=== PATIENT | female | born 1965 | race Caucasian/White ===

== ENCOUNTER 2016-08-30 19:26 | Emergency (ER) | payer OTHER ==
--- NOTE | 2016-08-30 19:46 | ED ORDER SUMMARY ---
..... Patient: DAVID CASTANEDA OrderSheet [facility] VisitID: [id number] [address] [place] [address] 50y, F Registration Date/Time: 08/30/2016 ORDER SHEET Weight: 54.4 kg (stated) Allergies: Sulfa Antibiotics, Penicillin, NICKEL GENERAL ORDERS: MEDICATION ORDERS: Doxycycline Hyclate PO 100 mg (NOW) (19:43 08/30/2016 Benitez Ornelas) ([facility] 19:49 HSoule) (20:03 ASchmuck) Tdap IM 0.5 mL (NOW, per protocol) (19:58 08/30/2016 ASchmuck verbal order read back to Benitez Ornelas) (19:59 ASchmuck) IV FLUIDS: ORDER SHEET NOTES: [Electronically signed by Roselyn Guadalupe P.A.-C (19:59 08/30/2016)] [Electronically signed by Karen Vazquez (20:06 08/30/2016)] [Electronically locked/signed by Karen Vazquez (20:06 08/30/2016)]
--- NOTE | 2016-08-30 19:46 | ED CLINICAL REPORT ---
Clinical Report - Physicians/Mid Levels [facility] [address] [place] [address] 08/30/2016 19:29 Patient: DAVID CASTANEDA Time Seen: 19:57 Aug 30 2016. Arrived- By private vehicle. Historian- patient. HISTORY OF PRESENT ILLNESS Chief Complaint: SKIN RASH and LESION. This started 5 days and is still present. It has been located on the right middle finger. (Patient reports swelling to her right arm over the last 7 days, was seen at the urgent care clinic on the , started on clindamycin, has had about 6-7 doses of such, swelling has improved, however the erythema has not. NO injury. NO fevers. No drainage. SOme swelling extending into forearm. NO h/o mrsa. Unclear on last tetanus.). REVIEW OF SYSTEMS No fever, chills or chest pain. All systems otherwise negative, except as recorded above. PAST HISTORY Tetanus immunization status is unknown. Problems: MADDY. Hyperventilation. Fibromyalgia. Herpes Zoster. Additional Surgeries: Ablation. Breast Augmentation. Dental Surgery. Nose. Shoulder Surgery. Tonsillectomy. Medications: Advil Oral. Acyclovir Oral. Benadryl Oral. Krill Oil Oral. Magnesium Oral. Ferrous Sulfate Oral. Ascorbic Acid Oral. Melatonin Oral. Cholecalciferol Oral. [place] 3 Oral. Peppermint Oil. Biotin Oral. Vitamin E Oral. Zinc Oral. Clindamycin HCl Oral. Allergies: NICKEL. Penicillin. Sulfa Antibiotics. SOCIAL HISTORY Never smoker. No alcohol use or drug use. ADDITIONAL NOTES The nursing notes have been reviewed. PHYSICAL EXAM Vital Signs: 08/30/2016 19:42 BP: 113/41. HR: 73. RR: 16. O2 saturation: 100%. Temp: 98.3 F. Appearance: Alert. Neck: Neck supple. CVS: Normal heart rate and rhythm. Respiratory: No respiratory distress. Breath sounds normal. Skin: Skin warm. Cellulitis (proximal dorsal surface of r. 3rd digit, with mild lymphagetic dorsal streaking into forearm). Extremities: (full extension/ flexion of r. 3rd digit). Neuro: Oriented X 3. PROGRESS AND PROCEDURES Course of Care: Patient with an isolated area of cellulitis, with full extension and flexion, no signs of tenosynovitis. We'll start her on doxycycline, in addition to clindamycin. Patient otherwise stable. No signs of abscess. No history of trauma or injury. Tetanus physician up-to-date. Patient is stable. Patient/family counseled. Disposition: Discharged. CLINICAL IMPRESSION Cellulitis of the right shoulder and right middle finger. INSTRUCTIONS Do not work for three days. (elevate take clindamycin and now Doxy Take benadryl at night in case there is any component of allergy). Warnings: Further evaluation is necessary. TETANUS: You were given a tetanus shot during your visit. Make a note for future reference. Prescription Medications: Doxycycline 100 mg: Take 1 capsule orally every 12 hours for 10 days. No refill. Follow-up: Follow up with your doctor in two days if not well and for wound check. (Electronically signed by Roselyn Guadalupe P.A.-C 08/30/2016 19:59)
--- NOTE | 2016-08-30 19:46 | ED ORDER SUMMARY ---
..... Patient: DAVID CASTANEDA OrderSheet [facility] VisitID: [id number] [address] [place] [address] 50y, F Registration Date/Time: 08/30/2016 ORDER SHEET Weight: 54.4 kg (stated) Allergies: Sulfa Antibiotics, Penicillin, NICKEL GENERAL ORDERS: MEDICATION ORDERS: Doxycycline Hyclate PO 100 mg (NOW) (19:43 08/30/2016 Benitez Ornelas) ([facility] 19:49 HSoule) (20:03 ASchmuck) Tdap IM 0.5 mL (NOW, per protocol) (19:58 08/30/2016 ASchmuck verbal order read back to Benitez Ornelas) (19:59 ASchmuck) IV FLUIDS: ORDER SHEET NOTES: [Electronically signed by Roselyn Guadalupe P.A.-C (19:59 08/30/2016)] [Electronically signed by Karen Vazquez (20:06 08/30/2016)] [Electronically locked/signed by Karen Vazquez (20:06 08/30/2016)]
--- NOTE | 2016-08-30 19:46 | ED CLINICAL REPORT ---
Clinical Report - Physicians/Mid Levels [facility] [address] [address] 08/30/2016 19:29 Patient: DAVID CASTANEDA Time Seen: 19:57 Aug 30 2016. Arrived- By private vehicle. Historian- patient. HISTORY OF PRESENT ILLNESS Chief Complaint: SKIN RASH and LESION. This started 5 days and is still present. It has been located on the right middle finger. (Patient reports swelling to her right arm over the last 7 days, was seen at the urgent care clinic on the , started on clindamycin, has had about 6-7 doses of such, swelling has improved, however the erythema has not. NO injury. NO fevers. No drainage. SOme swelling extending into forearm. NO h/o mrsa. Unclear on last tetanus.). REVIEW OF SYSTEMS No fever, chills or chest pain. All systems otherwise negative, except as recorded above. PAST HISTORY Tetanus immunization status is unknown. Problems: MADDY. Hyperventilation. Fibromyalgia. Herpes Zoster. Additional Surgeries: Ablation. Breast Augmentation. Dental Surgery. Nose. Shoulder Surgery. Tonsillectomy. Medications: Advil Oral. Acyclovir Oral. Benadryl Oral. Krill Oil Oral. Magnesium Oral. Ferrous Sulfate Oral. Ascorbic Acid Oral. Melatonin Oral. Cholecalciferol Oral. [place] 3 Oral. Peppermint Oil. Biotin Oral. Vitamin E Oral. Zinc Oral. Clindamycin HCl Oral. Allergies: NICKEL. Penicillin. Sulfa Antibiotics. SOCIAL HISTORY Never smoker. No alcohol use or drug use. ADDITIONAL NOTES The nursing notes have been reviewed. PHYSICAL EXAM Vital Signs: 08/30/2016 19:42 BP: 113/41. HR: 73. RR: 16. O2 saturation: 100%. Temp: 98.3 F. Appearance: Alert. Neck: Neck supple. CVS: Normal heart rate and rhythm. Respiratory: No respiratory distress. Breath sounds normal. Skin: Skin warm. Cellulitis (proximal dorsal surface of r. 3rd digit, with mild lymphagetic dorsal streaking into forearm). Extremities: (full extension/ flexion of r. 3rd digit). Neuro: Oriented X 3. PROGRESS AND PROCEDURES Course of Care: Patient with an isolated area of cellulitis, with full extension and flexion, no signs of tenosynovitis. We'll start her on doxycycline, in addition to clindamycin. Patient otherwise stable. No signs of abscess. No history of trauma or injury. Tetanus physician up-to-date. Patient is stable. Patient/family counseled. Disposition: Discharged. CLINICAL IMPRESSION Cellulitis of the right shoulder and right middle finger. INSTRUCTIONS Do not work for three days. (elevate take clindamycin and now Doxy Take benadryl at night in case there is any component of allergy). Warnings: Further evaluation is necessary. TETANUS: You were given a tetanus shot during your visit. Make a note for future reference. Prescription Medications: Doxycycline 100 mg: Take 1 capsule orally every 12 hours for 10 days. No refill. Follow-up: Follow up with your doctor in two days if not well and for wound check. (Electronically signed by Roselyn Guadalupe P.A.-C 08/30/2016 19:59)
--- NOTE | 2016-08-30 19:46 | ED NURSING NOTES ---
Clinical Report - Nurses [place] [address] [place] [address] 08/30/2016 19:29 Patient: DAVID CASTANEDA [facility] [id number] TRIAGE Triage time 19:34 Aug 30 2016. Acuity: LEVEL 4. Chief Complaint: RIGHT UPPER EXTREMITY PAIN, SWELLING, REDNESS and NUMBNESS. 19:42 08/30/16. Alert. No acute distress. SEPSIS SCREEN: Sepsis Screen. Negative (no infection suspected/documented). RONNY COMA SCORE: [place] Coma Scale: 15- eyes open spontaneously (4); best verbal response- oriented x 4 (5); best motor response- obeys commands (6). --19:42 Karen Vazquez 19:42 08/30/16. BP: 113/41. HR: 73. RR: 16. O2 saturation: 100%. Temp: 98.3 F. Pain level now 7/10. --19:42 Karen Vazquez. Weight: 54.4 kg stated. Height/Length: 68 inches Per Patient. BMI: 18.2. --19:41 Karen Vazquez. Medications Clindamycin HCl Oral. --19:36 Karen Vazquez Zinc Oral. --19:36 Karen Vazquez Vitamin E Oral. --19:36 Karen Vazquez Biotin Oral. --19:36 Karen Vazquez Peppermint Oil. --19:37 Karen Vazquez [place] 3 Oral. --19:37 Karen Vazquez Cholecalciferol Oral. --19:37 Karen Vazquez Melatonin Oral. --19:37 Karen Vazquez Ascorbic Acid Oral. --19:37 Karen Vazquez Ferrous Sulfate Oral. --19:37 Karen Vazquez Magnesium Oral. --19:37 Karen Vazquez Krill Oil Oral. --19:37 Karen Vazquez Benadryl Oral. --19:37 Karen Vazquez Acyclovir Oral. --19:38 Karen Vazquez Advil Oral. --19:38 Karen Vazquez. Medication/allergy information source: the patient. --19:42 Karen Vazquez. Allergies Sulfa Antibiotics. --19:38 Karen Vazquez Penicillin. --19:38 Karen Vazquez NICKEL. --19:38 Karen Vazquez. History Arrived by private vehicle. Historian: patient. Accompanied by family. Primary physician (Winifred). No injury occurred. This occurred (Wednesday). It is described as radiating to the right upper extremity, forearm, wrist and hand. ( Pt reports that she was seen at the clinic Wednesday for a swollen finger on her R hand. Was started on Clindamycin yesterday. Reports today for increased redness.). She has had swelling, redness, numbness and weakness. No fever or itching. Treatment RETURNED TELEPHONE EQUIPMENT APPRAISER: (Ibuprofen, epsom salt). PAST MEDICAL HX: No history of diabetes mellitus, heart disease or hypertension. Tetanus status: unknown. Immunizations: up-to-date. SOCIAL HX: Never smoker. No alcohol use or drug use. FALL RISK ASSESSMENT: Fall risk assessment completed. No fall risk identified. NUTRITIONAL RISK ASSESSMENT: The nutritional risk assessment revealed no deficiencies. FUNCTIONAL ASSESSMENT: Functional assessment: no impairments noted. LEARNING NEEDS ASSESSMENT: The learning needs assessment revealed no barriers. SKIN INTEGRITY ASSESSMENT: Skin integrity risk assessment completed. No skin integrity risk identified. --19:42 Karen Vazquez. PROBLEMS: MADDY. Hyperventilation. Fibromyalgia. Herpes Zoster. --19:39 Karen Vazquez. ADDITIONAL SURGERIES: Ablation. Breast Augmentation. Dental Surgery. Nose. Shoulder Surgery. Tonsillectomy. --19:39 Karen Vazquez. Assessment The patient states feels the same. --19:42 Karen Vazquez. Interventions ID band on patient. --19:42 Karen Vazquez. PHYSICAL ASSESSMENT 19:43 08/30/16. Ambulatory to room. GENERAL / NEURO / PSYCH: Oriented X 4. Alert. Appears in no acute distress. EXTREMITIES: Erythema on the extremities. Limited ROM present. Neuro-vascular status intact to the extremity. Right middle finger: tenderness and swelling. SKIN: Skin intact. Skin is warm and dry. --19:43 Karen Vazquez. NURSING PROGRESS NOTES 19:43 08/30/16. The plan of care for this patient has been created. Cold pack applied. Extremity elevated. Reassurance given. Two patient identifiers checked. Call light placed in reach. Side rails up x 1. Bed placed in lowest position. Brakes of bed on. Patient ready for evaluation- chart flagged and ED physician and PA notified. --19:43 Karen Vazquez 19:49 08/30/2016 TDAP IM 0.5 mL given. (Lot#: [id number], expiration date: 04/25/2018, Edge Plugger: [email or web address]). Given in the left deltoid. Allergies verified and confirmed 5 rights. Vaccine information statement provided to the patient. --19:59 Karen Vazquez 19:58 08/30/2016 DOXYCYCLINE HYCLATE PO Tablets 100 mg given. Allergies verified and confirmed 5 rights. --20:03 Karen Vazquez. DISPOSITION / DISCHARGE 20:05 08/30/16. Departure time: 20:05 Aug 30 2016. Condition at departure: unchanged. The goals identified in the patient's plan of care were met. No learning barriers present. Discharge instructions provided and reviewed with the patient. Reviewed warnings (Patient verbalized awareness of warning s/sx listed in dc paperwork.). Reviewed medication(s) (Doxycycline. Benadryl). Treatments reviewed. Reviewed referral to a primary care physician for followup. Patient verbalized understanding. Written instructions provided in Lebanese. The patient was discharged by the physician therapeutic recreation assistant. She was discharged home and accompanied by family. She left the Emergency Department ambulatory and via private vehicle. Family member driving. FALL RISK ASSESSMENT: Fall risk assessment completed. No fall risk identified. --20:05 Karen Vazquez 20:04 08/30/16. BP: deferred. HR: deferred. RR: deferred. O2 saturation: deferred. Temp: deferred. Pain level now deferred. --20:05 Karen Vazquez. Locked/Released at 08/30/2016 20:06 by Karen Vazquez,
--- NOTE | 2016-08-30 19:46 | ED NURSING NOTES ---
Clinical Report - Nurses [place] [address] [place] [address] 08/30/2016 19:29 [id number] Triage time 19:34 Aug 30 2016. Acuity: LEVEL 4. Chief Complaint: RIGHT UPPER EXTREMITY PAIN, SWELLING, REDNESS and NUMBNESS. 19:42 08/30/16. Alert. No acute distress. SEPSIS SCREEN: Sepsis Screen. Negative (no infection suspected/documented). RONNY COMA SCORE: [place] Coma Scale: 15- eyes open spontaneously (4); best verbal response- oriented x 4 (5); best motor response- obeys commands (6). --19:42 Karen Vazqeuz 19:42 08/30/16. BP: 113/41. HR: 73. RR: 16. O2 saturation: 100%. Temp: 98.3 F. Pain level now 7/10. --19:42 Karen Vazquez. Weight: 54.4 kg stated. Height/Length: 68 inches Per Patient. BMI: 18.2. --19:41 Karen Vazquez. Medications Clindamycin HCl Oral. --19:36 Karen Vazquez Zinc Oral. --19:36 Karen Vazquez Vitamin E Oral. --19:36 Karen Vazquez Biotin Oral. --19:36 Karen Vazquez Peppermint Oil. --19:37 Karen Vazquez [place] 3 Oral. --19:37 Karen Vazquez Cholecalciferol Oral. --19:37 Karen Vazquez Melatonin Oral. --19:37 Karen Vazquez Ascorbic Acid Oral. --19:37 Karen Vazquez Ferrous Sulfate Oral. --19:37 Karen Vazquez Magnesium Oral. --19:37 Karen Vazquez Krill Oil Oral. --19:37 Karen Vazquez Benadryl Oral. --19:37 Karen Vazquez Acyclovir Oral. --19:38 Karen Vazquez Advil Oral. --19:38 Karen Vazquez. Medication/allergy information source: the patient. --19:42 Karen Vazquez. Allergies Sulfa Antibiotics. --19:38 Karen Vazquez Penicillin. --19:38 Karen Vazquez NICKEL. --19:38 Karen Vazquez. History Arrived by private vehicle. Historian: patient. Accompanied by family. Primary physician (Winifred). No injury occurred. This occurred (Wednesday). It is described as radiating to the right upper extremity, forearm, wrist and hand. ( Pt reports that she was seen at the clinic Wednesday for a swollen finger on her R hand. Was started on Clindamycin yesterday. Reports today for increased redness.). She has had swelling, redness, numbness and weakness. No fever or itching. Treatment MARKET RISK SPECIALIST: (Ibuprofen, epsom salt). PAST MEDICAL HX: No history of diabetes mellitus, heart disease or hypertension. Tetanus status: unknown. Immunizations: up-to-date. SOCIAL HX: Never smoker. No alcohol use or drug use. FALL RISK ASSESSMENT: Fall risk assessment completed. No fall risk identified. NUTRITIONAL RISK ASSESSMENT: The nutritional risk assessment revealed no deficiencies. FUNCTIONAL ASSESSMENT: Functional assessment: no impairments noted. LEARNING NEEDS ASSESSMENT: The learning needs assessment revealed no barriers. SKIN INTEGRITY ASSESSMENT: Skin integrity risk assessment completed. No skin integrity risk identified. --19:42 Karen Vazquez. PROBLEMS: MADDY. Hyperventilation. Fibromyalgia. Herpes Zoster. --19:39 Karen Vazquez. ADDITIONAL SURGERIES: Ablation. Breast Augmentation. Dental Surgery. Nose. Shoulder Surgery. Tonsillectomy. --19:39 Karen Vazquez. Assessment The patient states feels the same. --19:42 Karen Vazquez. Interventions ID band on patient. --19:42 Karen Vazquez. PHYSICAL ASSESSMENT 19:43 08/30/16. Ambulatory to room. GENERAL / NEURO / PSYCH: Oriented X 4. Alert. Appears in no acute distress. EXTREMITIES: Erythema on the extremities. Limited ROM present. Neuro-vascular status intact to the extremity. Right middle finger: tenderness and swelling. SKIN: Skin intact. Skin is warm and dry. --19:43 Karen Vazquez. NURSING PROGRESS NOTES 19:43 08/30/16. The plan of care for this patient has been created. Cold pack applied. Extremity elevated. Reassurance given. Two patient identifiers checked. Call light placed in reach. Side rails up x 1. Bed placed in lowest position. Brakes of bed on. Patient ready for evaluation- chart flagged and ED physician and PA notified. --19:43 Karen Vazquez 19:49 08/30/2016 TDAP IM 0.5 mL given. (Lot#: [id number], expiration date: 04/25/2018, Automatic Winder Operator: [email or web address]). Given in the left deltoid. Allergies verified and confirmed 5 rights. Vaccine information statement provided to the patient. --19:59 Karen Vazquez 19:58 08/30/2016 DOXYCYCLINE HYCLATE PO Tablets 100 mg given. Allergies verified and confirmed 5 rights. --20:03 Karen Vazquez. DISPOSITION / DISCHARGE 20:05 08/30/16. Departure time: 20:05 Aug 30 2016. Condition at departure: unchanged. The goals identified in the patient's plan of care were met. No learning barriers present. Discharge instructions provided and reviewed with the patient. Reviewed warnings (Patient verbalized awareness of warning s/sx listed in dc paperwork.). Reviewed medication(s) (Doxycycline. Benadryl). Treatments reviewed. Reviewed referral to a primary care physician for followup. Patient verbalized understanding. Written instructions provided in Scottish. The patient was discharged by the physician assistant professor of music. She was discharged home and accompanied by family. She left the Emergency Department ambulatory and via private vehicle. Family member driving. FALL RISK ASSESSMENT: Fall risk assessment completed. No fall risk identified. --20:05 Karen Vazquez 20:04 08/30/16. BP: deferred. HR: deferred. RR: deferred. O2 saturation: deferred. Temp: deferred. Pain level now deferred. --20:05 Karen Vazquez. Locked/Released at 08/30/2016 20:06 by Karen Vazquez,
--- NOTE | 2016-08-30 20:06 | ED MED RECONCILIATION SUMMARY ---
Patient: DAVID CASTANEDA Medication Reconciliation Report [facility] VisitID: [id number] [address] [place] [address] 50y, F Registration Date/Time: 08/30/2016 Weight: 54.4 kg Height/Length: 68 in. BMI: 18.2 ALLERGIES: NICKEL, Penicillin, Sulfa Antibiotics The patient's Home Medications are listed below: THE FOLLOWING MEDICATIONS NEED TO BE RECONCILED: Acyclovir Oral Advil Oral Ascorbic Acid Oral Benadryl Oral Biotin Oral Cholecalciferol Oral Clindamycin HCl Oral Ferrous Sulfate Oral Krill Oil Oral Magnesium Oral Melatonin Oral [place] 3 Oral Peppermint Oil Vitamin E Oral Zinc Oral The source(s) of the original Home Medication information: patient The following Medications were given to the patient in the Emergency Department: TDAP [IM] IM 0.5 mL, administered: 08/30/2016 7:49:00 PM DOXYCYCLINE HYCLATE [PO] PO 100 mg, administered: 08/30/2016 7:58:00 PM The following Medications were prescribed to the patient: Doxycycline 100 mg: Take 1 capsule orally every 12 hours for 10 days. No refill. -- Roselyn Guadalupe, PSaulASaul-C
--- NOTE | 2016-08-30 20:06 | ED DISCHARGE INSTRUCTIONS ---
Patient: DAVID CASTANEDA General Instructions [facility] VisitID: [id number] [place] [address] 50y, F Registration Date/Time: 08/30/2016 Cellulitis of the right shoulder and right middle finger. INSTRUCTIONS Do not work for three days. (elevate take clindamycin and now Doxy Take benadryl at night in case there is any component of allergy). Warnings: Further evaluation is necessary. TETANUS: You were given a tetanus shot during your visit. Make a note for future reference. Prescription Medications: Doxycycline 100 mg: Take 1 capsule orally every 12 hours for 10 days. No refill. Follow-up: Follow up with your doctor in two days if not well and for wound check. ADDITIONAL INFORMATION Cellulitis You have an infection of the skin known as cellulitis. This usually starts with a scrape, cut, insect bite, blister or other opening in the skin which becomes infected. This is a serious condition. It must be watched closely to be sure the infection is not spreading. With antibiotic treatment, the size of the red area will gradually shrink in size until the skin returns to normal. This will take 7-10 days. The red area should never increase in size once the antibiotic medicine has been started. Occasionally, an infection will be resistant to one antibiotic and another one will have to be used. Home Care: 1) Limit the use of the affected part, since excess movement can cause the infection to spread. 2) If the infection is on your leg, walk as little as possible during the first few days of the treatment. Keep your leg elevated while sitting. This will reduce swelling. 3) Take all of the antibiotic medicine exactly as directed until it is gone. Be careful not to miss any doses, especially during the first seven days. Follow Up with your doctor or this facility as directed. Check the infected area daily for the warning signs listed below. Get Prompt Medical Attention if any of the following occur: -- Spreading area of redness -- Increasing swelling or pain -- Appearance of pus or drainage -- Fever over 100.4 F (38.0 C) oral, or over 101.4 F (38.6 C) rectal, after two days on antibiotics Diphtheria Toxoid Adsorbed, Tetanus Toxoid, Adsorbed Suspension for injection What is this medicine? DIPHTHERIA AND TETANUS TOXOIDS ADSORBED (dif THEER ee uh and TET n us TOK soids ad SAWRB) is a vaccine. It is used to prevent infections of diphtheria and tetanus (henrry). How should I use this medicine? This vaccine is for injection into a muscle. It is given by a health rn transitional care. A copy of Vaccine Information Statements will be given before each vaccination. Read this sheet carefully each time. The sheet may change frequently. Talk to your agricultural education teacher regarding the use of this medicine in children. While this drug may be prescribed for selected conditions, precautions do apply. What side effects may I notice from receiving this medicine? Side effects that you should report to your doctor or health rn transitional care as soon as possible: allergic reactions like skin rash, itching or hives, swelling of the face, lips, or tongue arthritis pain breathing problems changes in hearing extreme changes in behavior fast, irregular heartbeat fever over 100 degrees F pain, tingling, numbness in the hands or feet seizures unusually weak or tired Side effects that usually do not require medical attention (report to your doctor or health rn transitional care if they continue or are bothersome): aches or pains bruising, pain, swelling at site where injected headache loss of appetite low-grade fever of 100 degrees F or less nausea, vomiting sleepy swollen glands What may interact with this medicine? adalimumab anakinra infliximab live vaccines medicines that suppress your immune system medicines to treat cancer medicines that treat or prevent blood clots like daily aspirin, enoxaparin, heparin, ticlopidine, warfarin radiopharmaceuticals like iodine I-125 or I-131 What if I miss a dose? Keep appointments for follow-up (booster) doses as directed. It is important not to miss your dose. Call your doctor or health rn transitional care if you are unable to keep an appointment. Where should I keep my medicine? This drug is given in a hospital or clinic and will not be stored at home. What should I tell my health care provider before I take this medicine? They need to know if you have any of these conditions: bleeding disorder immune system problems infection with fever low levels of platelets in the blood an unusual or allergic reaction to diphtheria or tetanus toxoid, latex, thimerosal, other medicines, foods, dyes, or preservatives or trying to get breast-feeding What should I watch for while using this medicine? Contact your doctor or health rn transitional care and seek emergency medical care if any serious side effects occur. This vaccine, like all vaccines, may not fully protect everyone. You have been given the following additional information: Cellulitis Diphtheria Toxoid Adsorbed, Tetanus Toxoid, Adsorbed Suspension for injection Do not work for three days. (Electronically signed by Roselyn Guadalupe P.A.-C 08/30/2016 19:59)
--- NOTE | 2016-08-30 20:06 | ED MAR SUMMARY ---
..... Medication Administration Record [facility] [address] [place] [address] Patient: DAVID CASTANEDA Visit ID: [id number] 50y, F Weight: 54.4 kg Height/Length: 68 in BMI: 18.2 ALLERGIES: NICKEL, Penicillin, Sulfa Antibiotics Given 19:49 08/30/2016 Karen Vazquez, Medication Administered: TDAP [IM], Dose: 0.5 mL IM. Medication Ordered: Tdap IM 0.5 mL (NOW, per protocol). Given 19:58 08/30/2016 Karen Vazquez, Medication Administered: DOXYCYCLINE HYCLATE [PO], Dose: 100 mg Tablets PO. Medication Ordered: Doxycycline Hyclate PO 100 mg (NOW).
--- NOTE | 2016-08-30 20:06 | ED DISCHARGE INSTRUCTIONS ---
Patient: DAVID CASTANEDA General Instructions [facility] VisitID: [id number] [place] [address] 50y, F Registration Date/Time: 08/30/2016 Cellulitis of the right shoulder and right middle finger. INSTRUCTIONS Do not work for three days. (elevate take clindamycin and now Doxy Take benadryl at night in case there is any component of allergy). Warnings: Further evaluation is necessary. TETANUS: You were given a tetanus shot during your visit. Make a note for future reference. Prescription Medications: Doxycycline 100 mg: Take 1 capsule orally every 12 hours for 10 days. No refill. Follow-up: Follow up with your doctor in two days if not well and for wound check. ADDITIONAL INFORMATION Cellulitis You have an infection of the skin known as cellulitis. This usually starts with a scrape, cut, insect bite, blister or other opening in the skin which becomes infected. This is a serious condition. It must be watched closely to be sure the infection is not spreading. With antibiotic treatment, the size of the red area will gradually shrink in size until the skin returns to normal. This will take 7-10 days. The red area should never increase in size once the antibiotic medicine has been started. Occasionally, an infection will be resistant to one antibiotic and another one will have to be used. Home Care: 1) Limit the use of the affected part, since excess movement can cause the infection to spread. 2) If the infection is on your leg, walk as little as possible during the first few days of the treatment. Keep your leg elevated while sitting. This will reduce swelling. 3) Take all of the antibiotic medicine exactly as directed until it is gone. Be careful not to miss any doses, especially during the first seven days. Follow Up with your doctor or this facility as directed. Check the infected area daily for the warning signs listed below. Get Prompt Medical Attention if any of the following occur: -- Spreading area of redness -- Increasing swelling or pain -- Appearance of pus or drainage -- Fever over 100.4 F (38.0 C) oral, or over 101.4 F (38.6 C) rectal, after two days on antibiotics Diphtheria Toxoid Adsorbed, Tetanus Toxoid, Adsorbed Suspension for injection What is this medicine? DIPHTHERIA AND TETANUS TOXOIDS ADSORBED (dif THEER ee uh and TET n us TOK soids ad SAWRB) is a vaccine. It is used to prevent infections of diphtheria and tetanus (henrry). How should I use this medicine? This vaccine is for injection into a muscle. It is given by a health home care music therapist. A copy of Vaccine Information Statements will be given before each vaccination. Read this sheet carefully each time. The sheet may change frequently. Talk to your senior php web developer regarding the use of this medicine in children. While this drug may be prescribed for selected conditions, precautions do apply. What side effects may I notice from receiving this medicine? Side effects that you should report to your doctor or health home care music therapist as soon as possible: allergic reactions like skin rash, itching or hives, swelling of the face, lips, or tongue arthritis pain breathing problems changes in hearing extreme changes in behavior fast, irregular heartbeat fever over 100 degrees F pain, tingling, numbness in the hands or feet seizures unusually weak or tired Side effects that usually do not require medical attention (report to your doctor or health home care music therapist if they continue or are bothersome): aches or pains bruising, pain, swelling at site where injected headache loss of appetite low-grade fever of 100 degrees F or less nausea, vomiting sleepy swollen glands What may interact with this medicine? adalimumab anakinra infliximab live vaccines medicines that suppress your immune system medicines to treat cancer medicines that treat or prevent blood clots like daily aspirin, enoxaparin, heparin, ticlopidine, warfarin radiopharmaceuticals like iodine I-125 or I-131 What if I miss a dose? Keep appointments for follow-up (booster) doses as directed. It is important not to miss your dose. Call your doctor or health home care music therapist if you are unable to keep an appointment. Where should I keep my medicine? This drug is given in a hospital or clinic and will not be stored at home. What should I tell my health care provider before I take this medicine? They need to know if you have any of these conditions: bleeding disorder immune system problems infection with fever low levels of platelets in the blood an unusual or allergic reaction to diphtheria or tetanus toxoid, latex, thimerosal, other medicines, foods, dyes, or preservatives or trying to get breast-feeding What should I watch for while using this medicine? Contact your doctor or health home care music therapist and seek emergency medical care if any serious side effects occur. This vaccine, like all vaccines, may not fully protect everyone. You have been given the following additional information: Cellulitis Diphtheria Toxoid Adsorbed, Tetanus Toxoid, Adsorbed Suspension for injection Do not work for three days. (Electronically signed by Roselyn Guadalupe P.A.-C 08/30/2016 19:59)
--- NOTE | 2016-08-30 20:06 | ED MAR SUMMARY ---
..... Medication Administration Record [facility] [address] [place] [address] Patient: DAVID CASTANEDA Visit ID: [id number] 50y, F Weight: 54.4 kg Height/Length: 68 in BMI: 18.2 ALLERGIES: NICKEL, Penicillin, Sulfa Antibiotics Given 19:49 08/30/2016 Karen Vazquez, Medication Administered: TDAP [IM], Dose: 0.5 mL IM. Medication Ordered: Tdap IM 0.5 mL (NOW, per protocol). Given 19:58 08/30/2016 Karen Vazquez, Medication Administered: DOXYCYCLINE HYCLATE [PO], Dose: 100 mg Tablets PO. Medication Ordered: Doxycycline Hyclate PO 100 mg (NOW).
--- NOTE | 2016-08-30 20:06 | ED MED RECONCILIATION SUMMARY ---
Patient: DAVID CASTANEDA Medication Reconciliation Report [facility] VisitID: [id number] [address] [place] [place] [address] 50y, F Registration Date/Time: 08/30/2016 Weight: 54.4 kg Height/Length: 68 in. BMI: 18.2 ALLERGIES: NICKEL, Penicillin, Sulfa Antibiotics The patient's Home Medications are listed below: THE FOLLOWING MEDICATIONS NEED TO BE RECONCILED: Acyclovir Oral Advil Oral Ascorbic Acid Oral Benadryl Oral Biotin Oral Cholecalciferol Oral Clindamycin HCl Oral Ferrous Sulfate Oral Krill Oil Oral Magnesium Oral Melatonin Oral [place] 3 Oral Peppermint Oil Vitamin E Oral Zinc Oral The source(s) of the original Home Medication information: patient The following Medications were given to the patient in the Emergency Department: TDAP [IM] IM 0.5 mL, administered: 08/30/2016 7:49:00 PM DOXYCYCLINE HYCLATE [PO] PO 100 mg, administered: 08/30/2016 7:58:00 PM The following Medications were prescribed to the patient: Doxycycline 100 mg: Take 1 capsule orally every 12 hours for 10 days. No refill. -- Roselyn Guadalupe, PSaulASaul-C
== END 2016-08-30 20:01 | disposition home or self-care (01) ==
LOC: ED SRH 19:26
DX: L03.113 Cellulitis of right upper limb (principal); L03.011 Cellulitis of right finger; Z23 Encounter for immunization; Z79.899 Other long term (current) drug therapy; Z79.2 Long term (current) use of antibiotics; Z88.0 Allergy status to penicillin; Z88.2 Allergy status to sulfonamides